=== PATIENT | female | born 1980 | race Caucasian/White ===

== ENCOUNTER 2017-06-20 10:31 | Emergency (ER) | payer BC ==
[2017-06-20] MEDS: ACETAMINOPHEN 500 MG TAB PO (12:53)
[2017-06-20] MEDS: BUPIVACAINE 0.25% (MPF) 10 ML 10 ML VIAL INJ (13:00)
[2017-06-20] MEDS: BUPIVACAINE 0.25% (MPF) 30 ML INJ INJ (14:02)
[2017-06-20 14:47] LABS: URINE BLOOD (Dip) POC 2+ (NEGATIVE); URINE GLUCOSE (Dip) POC Negative (NEGATIVE); URINE KETONES (Dip) POC Negative (NEGATIVE); URINE LEUKOCYTE EST (Dip) POC 1+ (NEGATIVE); URINE NITRITE (Dip) POC Negative (NEGATIVE); URINE TOTAL PROTEIN POC Negative (NEGATIVE)
[2017-06-20 14:47] LABS: URINE PH (Dip) POC 5.5 (5.0-8.5)
== END 2017-06-20 16:00 | disposition home or self-care (01) ==
LOC: FTE 10:31
DX: N39.0 Urinary tract infection, site not specified (principal); M62.830 Muscle spasm of back; J45.909 Unspecified asthma, uncomplicated; F17.210 Nicotine dependence, cigarettes, uncomplicated
CPT/HCPCS: 20552; 72100; 76830; 76856; 81003; 99284-25

== ENCOUNTER 2017-08-09 16:10 | Emergency (ER) | payer OTHER, BC | END 2017-08-09 17:05 | disposition home or self-care (01) | LOC: E/R 17:05 | DX: M54.42 Lumbago with sciatica, left side (principal); J45.909 Unspecified asthma, uncomplicated; Z87.891 Personal history of nicotine dependence | CPT/HCPCS: 99283; Z7502 ==

== ENCOUNTER → 2017-08-16 13:05 | Emergency (ER) | payer OTHER | END | disposition home or self-care (01) | LOC: E/R 13:05 | DX: L03.012 Cellulitis of left finger (principal); J45.909 Unspecified asthma, uncomplicated | CPT/HCPCS: 99284 ==

== ENCOUNTER 2017-09-05 14:49 | Emergency (ER) | payer OTHER ==
[2017-09-05] MEDS: KETOROLAC 60 MG INJ IM (15:52)
== END 2017-09-05 16:04 | disposition home or self-care (01) ==
LOC: FTE 14:49
DX: M79.605 Pain in left leg (principal); J45.909 Unspecified asthma, uncomplicated; M54.32 Sciatica, left side; Z87.891 Personal history of nicotine dependence
CPT/HCPCS: 81025; 87086; 96372; 99284-25

== ENCOUNTER 2017-09-17 17:02 | Emergency (ER) | payer OTHER ==
[2017-09-17] MEDS: KETOROLAC 15 MG INJ IM (18:59)
[2017-09-17] MEDS: DEXAMETHASONE 10 MG/ML 1 ML INJ IM (18:59)
[2017-09-17] MEDS: DIAZEPAM 2 MG TAB PO (19:07)
== END 2017-09-17 20:33 | disposition home or self-care (01) ==
LOC: FTE 17:02
DX: M54.5 Low back pain (principal); J45.909 Unspecified asthma, uncomplicated; F17.210 Nicotine dependence, cigarettes, uncomplicated
CPT/HCPCS: 81025; 96372; 99284-25

== ENCOUNTER 2018-02-21 18:17 | Emergency (ER) | payer OTHER ==
[2018-02-21] MEDS: ONDANSETRON (ODT) 4 MG TAB ODT (20:53)
[2018-02-21 22:16] LABS: URINE BLOOD (Dip) POC Negative (NEGATIVE); URINE GLUCOSE (Dip) POC Negative (NEGATIVE); URINE KETONES (Dip) POC 2+ (NEGATIVE); URINE LEUKOCYTE EST (Dip) POC Negative (NEGATIVE); URINE NITRITE (Dip) POC Negative (NEGATIVE); URINE TOTAL PROTEIN POC Negative (NEGATIVE)
[2018-02-21 22:16] LABS: URINE PH (Dip) POC 5.5 (5.0-8.5)
[2018-02-21 23:29] LABS: ADD MAN DIFF? NO
[2018-02-21 23:30] LABS: BASOPHILS % 0.3 % (0.0-2.0); EOSINOPHILS % 0.1 % (0.0-7.0); HEMATOCRIT 38.9 % (37.0-47.0); HEMOGLOBIN 12.7 g/dl (12.0-16.0); LYMPHOCYTES # 1.4 10^3/ul (0.8-2.9); LYMPHOCYTES % 12.7 % (15.0-51.0); MEAN CORPUSCULAR HEMOGLOBIN 28.4 pg (29.0-33.0); MEAN CORPUSCULAR HGB CONC 32.6 g/dl (32.0-37.0); MEAN PLATELET VOLUME 9.7 fl (7.4-10.4); MONOCYTE # 0.7 10^3/ul (0.3-0.9); MONOCYTES % 6.9 % (0.0-11.0); NEUTROPHIL # 8.6 10^3/ul (1.6-7.5); NEUTROPHILS % 79.4 % (39.0-77.0); PLATELET COUNT 325 10^3/UL (140-415); RED BLOOD COUNT 4.47 10^6/ul (4.20-5.40); RED CELL DISTRIBUTION WIDTH 12.7 % (11.5-14.5)
[2018-02-21 23:30] LABS: WHITE BLOOD COUNT 10.8 10^3/ul (4.8-10.8)
[2018-02-21] MEDS: SOD CHLORIDE 0.9% 1,000 ML IV (23:35)
[2018-02-21] MEDS: DICYCLOMINE 20 MG INJ IM (23:35)
[2018-02-21] MEDS: ONDANSETRON 4 MG INJ IV (23:36)
[2018-02-21 23:51] LABS: ALANINE AMINOTRANSFERASE 24 IU/L (13-69); ALBUMIN 3.7 g/dl (3.3-4.9); ALBUMIN/GLOBULIN RATIO 1.02; ALKALINE PHOSPHATASE 112 IU/L (42-121); ANION GAP 9 (5-13); ASPARTATE AMINO TRANSFERASE 71 IU/L (15-46); BILIRUBIN,INDIRECT 0.9 mg/dl (0-1.1); BILIRUBIN,TOTAL 0.9 mg/dl (0.2-1.3); BLOOD UREA NITROGEN 10 mg/dl (7-20); CALCIUM 9.4 mg/dl (8.4-10.2); CARBON DIOXIDE 30 mmol/L (21-31); CHLORIDE 98 mmol/L (97-110); CREATININE 0.31 mg/dl (0.44-1.00); GLUCOSE 97 mg/dl (70-220); LIPASE 55 U/L (23-300); POTASSIUM 3.8 mmol/L (3.5-5.1); SODIUM 137 mmol/L (135-144); TOTAL PROTEIN 7.3 g/dl (6.1-8.1)
== END 2018-02-22 00:41 | disposition home or self-care (01) ==
LOC: E/R 02-22 00:41 → FTE 18:17
DX: S00.81XA Abrasion of other part of head, initial encounter (principal); R40.2142 Coma scale, eyes open, spontaneous, at arrival to emergency department; R40.2362 Coma scale, best motor response, obeys commands, at arrival to emergency department; R40.2252 Coma scale, best verbal response, oriented, at arrival to emergency department; R19.7 Diarrhea, unspecified; E86.0 Dehydration; J45.909 Unspecified asthma, uncomplicated; W22.8XXA Striking against or struck by other objects, initial encounter; Y92.89 Other specified places as the place of occurrence of the external cause; Z87.891 Personal history of nicotine dependence
CPT/HCPCS: 36415; 74176; 80053; 81003; 81025; 83690; 85025; 96372; 96374; 99285-25